=== PATIENT | female | born 1985 ===

== ENCOUNTER 2017-08-09 08:15 | Emergency (ER) | payer MEDICAID, OTHER ==
[2017-08-09 08:38] VITALS: BP 96/58
--- NOTE | 2017-08-09 08:47 | UC ---
Complaint Female HPI - HPI Summary HPI Summary: Patient presents with 18 hours of urinary frequency, dysuria, and this morning hematuria. Patient denies any nausea or vomiting. Patient is back pain. No fevers or chills. Patient denies vaginal discharge, itching, or border measurer. Patient has an IUD and is not concerned . Patient has had UTIs in the past and states this feels similar. Patient has not taken any analgesia. She without other complaints. Since medications reviewed at this visit - History Of Current Complaint Chief Complaint: UCGU Stated Complaint: UTI SYMPTOMS Time Seen by Provider: 08/09/17 08:17 Hx Obtained From: Patient ?: No Onset/Duration: Gradual Onset Timing: Lasting Hours Severity Initially: Mild Severity Currently: Mild Pain Intensity: 4 Pain Scale Used: 0-10 Numeric - Allergies/Home Medications Allergies/Adverse Reactions: Allergies Allergy/AdvReac Type Severity Reaction Status Date / Time No Known Allergies Allergy Verified 08/09/17 08:34 Home Medications: Home Medications Iud 08/09/17 [History] Multivitamins/Minerals TAB* [Theragran/minerals TAB*] 1 tab PO DAILY 08/09/17 [ History Confirmed 08/09/17] Sertraline* [Zoloft*] 25 mg PO DAILY 08/09/17 [History Confirmed 08/09/17] PMH/Surg Hx/FS Hx/Imm Hx Previously Healthy: Yes - Surgical History Surgical History: None - Family History Known Family History: Positive: Other - Noncontributory - Social History Occupation: Employed Full-time Lives: With Family Alcohol Use: Rare Substance Use Type: None Smoking Status (MU): Never Smoked Tobacco Review of Systems Constitutional: Negative Genitourinary: Dysuria, Hematuria, Frequency, Urgency All Other Systems Reviewed And Are Negative: Yes Physical Exam - Summary Physical Exam Summary: Vital Signs Reviewed: Yes A+Ox3, no distress Eyes: Conjunctiva Clear ENT: Hearing grossly normal neck: supple Respiratory: Positive: No respiratory distress, No accessory muscle use Cardiovascular: skin color reflect adequate perfusion abd soft, mild suprapubic, no guarding, no rebound + BS no CVA b/l Musculoskeletal Exam: NÚÑEZ x 4 without difficulty Neurological: Positive: Alert, ambulatory without difficulty Psychological: Positive: Normal Response To Family Skin: Positive: no rash, no ecchymosis Triage Information Reviewed: Yes Vital Signs: Initial Vital Signs Temp 98.6 F 08/09/17 08:30 Pulse 82 08/09/17 08:30 Resp 15 08/09/17 08:30 BP 96/58 08/09/17 08:30 Pulse Ox 100 08/09/17 08:30 Complaint Female Dx - Course Course Of Treatment: Patient with dysuria and urgency 18 hours. Patient with urinalysis consistent with infection. We will send urine culture. We'll prescribe Keflex 500 mg twice a day. Will also prescribe Pyridium. Discussed with patient urine color changes. Discussed with patient regarding hydration. Patient states she frequently gets yeast infections with antibiotics also prescribed Diflucan as needed. return precautions. Patient comfortable and agreed with plan. - Differential Dx/Diagnosis Provider Diagnoses: dysuria Discharge - Sign-Out/Discharge Documenting (check all that apply): Discharge/Admit/Transfer - Discharge Plan Condition: Stable Disposition: HOME Prescriptions: Cephalexin CAP* [Keflex 500 CAP*] 500 mg PO BID #14 cap Fluconazole [Diflucan 150 MG (NF)] 150 mg PO ONCE PRN #1 tab PRN Reason: vaginal yeast infection Phenazopyridine TAB* [Pyridium 100 mg TAB*] 100 mg PO TID PRN #9 tab PRN Reason: burning with urination Patient Education Materials: Urinary Tract Infection in Women (ED) Referrals: No Primary Care Phys,NOPCP [Primary Care Provider] - Additional Instructions: - stay well hydrated - drink plenty of non-alcoholic, non caffinated beverages - your urine will be further tested - if you require any changes to your treatment, we will contact you - this usually take 2 days - Contact your primary doctor to arrange a follow-up appointment next week. Contact your doctor or return with questions or concerns - Take your antibiotics exactly as prescribed until gone - Take pyridium as prescribed for discomfort. This will make your urine blaze orange - this is normal - Okay to alternate ibuprofen (Advil, Motrin) and Tylenol every 3 hours for pain. Take with food - you have been given a prescription for diflucan - okay to use as needed for a yeast infection if you develop from antibiotics - Call your doctor or return with questions or concerns - Billing Disposition and Condition Condition: STABLE Disposition: Home
== END 2017-08-09 09:16 | disposition home or self-care (01) ==
LOC: UCCORT 08:15
DX: R30.0 Dysuria (principal)
CPT/HCPCS: 81003; 87077; 87086; 99212; G0463

== ENCOUNTER 2017-08-25 08:53 | Emergency (ER) | payer OTHER ==
[2017-08-25 09:11] VITALS: BP 97/64
--- NOTE | 2017-08-25 09:29 | UC ---
Complaint Female HPI - HPI Summary HPI Summary: urinary frequency x 1 day burning, no fever, no chills, no flank pain - History Of Current Complaint Chief Complaint: UCGU Stated Complaint: URINARY Time Seen by Provider: 08/25/17 09:18 Hx Obtained From: Patient Hx Last Menstrual Period: unknown ?: No Onset/Duration: Gradual Onset, Lasting Days - 1, Still Present Timing: Constant Severity Initially: Moderate Severity Currently: Moderate Pain Intensity: 4 Character: Burning Aggravating Factor(s): Urination Associated Signs And Symptoms: Negative: Fever, Back Pain, Vaginal Bleeding/ Discharge, Vaginal Discharge, Nausea, Vomiting(# Of Episodes =), Genital Swelling, Genital Blisters, Retained Foregin Body (Specify) - Allergies/Home Medications Allergies/Adverse Reactions: Allergies Allergy/AdvReac Type Severity Reaction Status Date / Time No Known Allergies Allergy Verified 08/25/17 09:06 PMH/Surg Hx/FS Hx/Imm Hx Previously Healthy: Yes - Surgical History Surgical History: None - Family History Known Family History: Positive: Other - Noncontributory Negative: Diabetes - Social History Alcohol Use: Rare Substance Use Type: None Smoking Status (MU): Never Smoked Tobacco Review of Systems Constitutional: Negative Skin: Negative Eyes: Negative ENT: Negative Respiratory: Negative Genitourinary: Dysuria, Frequency Is Patient Immunocompromised?: No All Other Systems Reviewed And Are Negative: Yes Physical Exam Triage Information Reviewed: Yes Appearance: Well-Appearing, No Pain Distress, Well-Nourished Vital Signs: Initial Vital Signs Temp 98.9 F 08/25/17 09:07 Pulse 73 08/25/17 09:07 Resp 14 08/25/17 09:07 BP 97/64 08/25/17 09:07 Pulse Ox 100 08/25/17 09:07 Vital Signs Reviewed: Yes Eye Exam: Normal Eyes: Positive: Conjunctiva Clear ENT: Positive: Normal ENT inspection, Hearing grossly normal, Pharynx normal Neck: Positive: Supple, Nontender, No Lymphadenopathy Respiratory: Positive: Chest non-tender, Lungs clear, Normal breath sounds Cardiovascular: Positive: RRR, No Murmur, Pulses Normal Abdomen Description: Positive: Nontender, No Organomegaly, Soft. Negative: CVA Tenderness (R), CVA Tenderness (L), Distended, Guarding Skin Exam: Normal Complaint Female Dx - Differential Dx/Diagnosis Provider Diagnoses: UTI Discharge - Sign-Out/Discharge Documenting (check all that apply): Patient Departure - Discharge Plan Condition: Stable Disposition: HOME Prescriptions: Sulfamethox/Trimethoprim DS* [Bactrim DS 800/160 TAB*] 1 tab PO BID #14 tab Patient Education Materials: Urinary Tract Infection in Women (DC) Referrals: Waleska Sheridan MD [Primary Care Provider] - If Needed - Billing Disposition and Condition Condition: STABLE Disposition: Home
== END 2017-08-25 09:30 | disposition home or self-care (01) ==
LOC: UCCORT 08:53
DX: N39.0 Urinary tract infection, site not specified (principal); B95.7 Other staphylococcus as the cause of diseases classified elsewhere
CPT/HCPCS: 81003; 87086; 87088; 99212; G0463

== ENCOUNTER 2018-07-30 08:46 | Emergency (ER) | payer SELFPAY ==
[2018-07-30 08:53] VITALS: BP 105/73
--- NOTE | 2018-07-30 09:45 | UC ---
Eye Complaint HPI - HPI Summary HPI Summary: PATIENT HAS HAD URI SYMPTOMS FOR SEVERAL DAYS INCLUDING COUGH AND CONGESTION. NO FEVER, NAUSEA/VOMITING. A FEW DAYS AGO DEVELOPED LEFT EYE REDNESS, IRRITATION AND GOOPY DRAINAGE. NOW RIGHT EYE IS ALSO AFFECTED. NO VISUAL DISTURBANCES OR HEADACHE. - History of Current Complaint Chief Complaint: UCEye Stated Complaint: EYE COMPLAINT Time Seen by Provider: 07/30/18 09:32 Hx Obtained From: Patient Hx Last Menstrual Period: iud Onset/Duration: Gradual Onset, Lasting Days, Still Present Timing: Constant Severity Initially: Moderate Severity Currently: Moderate Pain Intensity: 0 Pain Scale Used: 0-10 Numeric Location of Injury: Conjunctiva Aggravating Factor(s): Nothing Alleviating Factor(s): Nothing Associated Signs And Symptoms: Positive: Drainage (Purulent). Negative: Photophobia, Vision Impairment Bilateral - Allergies/Home Medications Allergies/Adverse Reactions: Allergies Allergy/AdvReac Type Severity Reaction Status Date / Time No Known Allergies Allergy Verified 07/30/18 08:53 PMH/Surg Hx/FS Hx/Imm Hx Previously Healthy: Yes - Surgical History Surgical History: None - Family History Known Family History: Positive: Non-Contributory Negative: Diabetes - Social History Alcohol Use: Rare Substance Use Type: None Smoking Status (MU): Never Smoked Tobacco Review of Systems All Other Systems Reviewed And Are Negative: Yes Constitutional: Positive: Negative Skin: Positive: Negative Eyes: Positive: Drainage, Eye Redness. Negative: Blurred Vision, Photophobia ENT: Positive: Ear Ache, Nasal Discharge Respiratory: Positive: Cough Cardiovascular: Positive: Negative Gastrointestinal: Positive: Negative Neurological: Positive: Negative Physical Exam Triage Information Reviewed: Yes Appearance: Well-Appearing, No Pain Distress, Well-Nourished Vital Signs: Initial Vital Signs Temp 98 F 07/30/18 08:50 Pulse 67 07/30/18 08:50 Resp 16 07/30/18 08:50 BP 105/73 07/30/18 08:50 Pulse Ox 100 07/30/18 08:50 Vital Signs Reviewed: Yes Eyes: Positive: Conjunctiva Inflamed - LEFT>RIGHT, Discharge - LEFT EYE CLEAR DRAINAGE ENT: Positive: Hearing grossly normal, Pharynx normal, TMs normal Neck: Positive: Supple, Nontender, No Lymphadenopathy Respiratory Exam: Normal Cardiovascular Exam: Normal Abdomen Description: Positive: Soft Musculoskeletal: Positive: No Edema Neurological: Positive: Alert Psychological: Positive: Age Appropriate Behavior Skin: Negative: Rashes Eye Complaint Course/Dx - Differential Dx/Diagnosis Provider Diagnosis: Bilateral conjunctivitis, Acute URI Discharge - Sign-Out/Discharge Documenting (check all that apply): Patient Departure All imaging exams completed and their final reports reviewed: No Studies - Discharge Plan Condition: Stable Disposition: HOME Prescriptions: Ciprofloxacin 0.3% OPTH.SAVANNA* [Cipro 0.3% Opth*] 1 drop BOTH EYES Q4H #1 btl Patient Education Materials: Upper Respiratory Infection (ED), Conjunctivitis ( ED) Referrals: Pushpa Reyes MD [Primary Care Provider] - If Needed - Billing Disposition and Condition Condition: STABLE Disposition: Home
== END 2018-07-30 09:45 | disposition home or self-care (01) ==
LOC: UCEAST 08:46
DX: H10.9 Unspecified conjunctivitis (principal); J06.9 Acute upper respiratory infection, unspecified
CPT/HCPCS: 99202; G0463